=== PATIENT | male | born 1995 | race Caucasian/White ===

== ENCOUNTER → 2020-02-27 10:30 | Outpatient (CLI) | payer OTHER, SELFPAY ==
--- NOTE | ~2020-02-27 | MR_ITS ---
EXAMINATION: MR knee LT wo con DATE: 02/27/2020 11:32 INDICATION: Left knee pain TECHNIQUE: Magnetic resonance imaging (MRI) of the left knee was performed without intravenous contra st. Sequences included coronal PD-weighted FSE, coronal PD-weighted FS FSE, sagittal T2-weighted FSE , sagittal PD-weighted FS FSE and axial PD weighted fat saturated FSE. COMPARISON: None. FINDINGS: Medial compartment: There is subtle increased signal which extends to contact with the superior and inferior articular watson rface along the junction of the central to inner third of the posterior horn of the medial meniscus w hich is evident only on the T2 FS sequences. Although meeting MRI criteria for a longitudinal vertica l meniscal tear, the relatively low degree of increased signal and as well as a absence of a correlat e on the remaining sequences does decrease the level of confidence. No obvious source of artifact how ever is identified to otherwise explain the signal. Articular cartilage is normal. Lateral compartment: Similar to the posterior horn of the medial meniscus there is subtle increased signal extending to co ntact the superior and inferior articular surfaces in the anterior inner third of the posterior horn of the lateral meniscus again which is only evident on the T2 FSE sequence with normal appearance to the meniscus in this region on the sagittal PD-weighted as well as a coronal and axial images again r aising suspicion that this is artifactual rather than a true meniscal tear. Chondral surface irregula rity at the central aspect of the lateral tibial plateau. Patellofemoral compartment: Articular cartilage is normal. A few subtle linear bands of more definitive artifactual increased sig nal projecting over the cartilage at the medial trochlea but which could also be seen extending acros s the deeper marrow of the medial femoral condyle. Ligaments and tendons: Anterior and posterior cruciate ligaments are normal. The medial collateral ligament and fibular deandre ateral ligament complex are normal. The extensor mechanism is normal. The visualized medial and later al hamstring tendons as well as the iliotibial band are normal. Fluid: Physiologic amount of fluid in the joint space. No loose osteochondral bodies identified. Osseous/other: Normal marrow signal. No fracture or pathologic marrow replacing process. IMPRESSION: 1. Shallow chondral surface regularity at the central aspect. Lateral tibial plateau. 2. Subtle increased signal at the posterior horn of both medial and lateral menisci seen only on the T2-weighted FS sequences and favor artifact over meniscal tear. If there is a high degree of suspicio n for meniscal tear could consider MR arthrography for more definitive determination. Reviewed, dictated and finalized at location [facility] IMPRESSION: 1. Shallow chondral surface regularity at the central aspect. Lateral tibial pl ateau. 2. Subtle increased signal at the posterior horn of both medial and lateral men isci seen only on the T2-weighted FS sequences and favor artifact over meniscal tear. If there is a high degree of suspicion for meniscal tear could consider MR arthrography for more definitive determination.
== END ==
PROVIDERS: Visit Provider Nurse Practitioner Family
DX: M25.562 Pain in left knee (principal)
CPT/HCPCS: 73721

== ENCOUNTER 2020-03-23 00:59 | Outpatient (CLI) | payer OTHER, SELFPAY ==
[2020-03-23 20:15] LABS: SARS-CoV-2 RNA PCR Negative
== END 2020-03-23 01:00 | disposition home or self-care (01) ==
LOC: ANHCOVIDDT 00:59
PROVIDERS: PCP Internal Medicine; Visit Provider Orthopaedic Surgery
DX: Z01.818 Encounter for other preprocedural examination (principal); Z20.828 Contact with and (suspected) exposure to other viral communicable diseases
CPT/HCPCS: 87635; C9803; U0003

== ENCOUNTER 2020-03-27 00:37 | Day surgery (SDC) | payer OTHER, SELFPAY ==
[2020-03-18 15:14] VITALS: BMI 38.8
--- NOTE | 2020-03-26 14:12 | WPDANESEPPF ---
Anes - Initial Pre Proc Eval Procedure: Operation Date: 03/27/20 14:30 Proposed Procedures p Left Knee Arthroscopy, Proceed As Indicated - Jame Banerjee MD Date/Time: 03/26/20 14:12 Surgeon: Jame Banerjee MD Pre Op Diagnosis: Left Knee Medial Meniscus Tear Patient Data Age: 24 Gender: M Height: 1.83 m Weight: 130 kg Allergies Allergy/AdvReac Type Severity Reaction Status Date / Time No Known Allergies Allergy Verified 03/18/20 15:15 Home Medications Medication Instructions Recorded Confirmed Type No Home Medications 02/19/20 03/18/20 History Patient hx anesthesia problems: none Family hx anesthesia problems: none PMFSH Past Medical History Medical History Arthritis Heart murmur Irregular heartbeat Left anterior knee pain Medial meniscus tear Weight gain Surgical History Surgical History History of heart surgery 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 Family History Family History Unknown Cancer Social History Social History Smoking status: Never smoker Smokeless tobacco user: chewing tobacco Second hand tobacco smoke exposure: No Smoking end date: 04/12/18 Alcohol intake: current Drinks per week: 12 Living arrangements: with family Gender identity (if verbalized by the patient): Male Spiritual care concerns: No Anes - Eval Final PreProcedure Day of Procedure 03/26/20 14:12 Patient weight: obese Heart: regular rate and rhythm Lungs: clear to auscultation and normal air movement Airway: Mallampati scale class II Neurological: alert and oriented Last oral intake: >/= 8 hours ASA classification: III Emergent: no Anesthetic plan: proceed Anesthesia type and monitoring: general LMA and standard monitoring Informed Consent: The patient's anesthetic plan and its attendant risks and benefits were discussed with the patient/family/POA. Questions were solicited and answers provided to the satisfaction of the patient/family/POA.
[2020-03-27] VITALS (7 sets, daily range): BP systolic 116–142; BP diastolic 67–83; PULSE 57–71; RESP 12–20; TEMP 36.7; O2SAT 94–100
--- NOTE | 2020-03-27 07:27 | WPDHPUPDATE1 ---
History and Physical Update Update Date/Time: 03/27/20 07:27 History and Physical has been reviewed, including an updated exam of the patient. There are NO changes in the patient's condition. Risks, benefits, and alternatives have been discussed and questions answered. Patient agrees to proceed with procedure.
[2020-03-27] MEDS: ACETAMINOPHEN 500 MG TABLET 1000 MG PO (14:05)
[2020-03-27] MEDS: CELECOXIB 200 MG CAPSULE PO (14:06)
[2020-03-27] MEDS: LACTATED RINGERS 1,000 ML 30 ML IV CONT ×2 (14:15→15:57)
--- NOTE | 2020-03-27 14:48 | SUR.PREOP ---
1400-PT STATES HAS USED CRUTCHES IN THE PAST, IS COMFORTABLE WITH USING THEM, AND DOES NOT NEED/WANT CRUTCH TRAINING. VERBAL OVERVIEW OF PROPER POSITIONING AND USAGE GIVEN.
[2020-03-27] MEDS: ceFAZolin 3 GM/D5W 100 ML 100 ML IVPB (15:05)
[2020-03-27] MEDS: BUPIVACAINE HCL 0.5% PF 30 ML VIAL INFILTRATE (15:26)
--- NOTE | 2020-03-27 15:56 | PM.PROC ---
Procedure Note - Detailed Date of procedure: 03/27/20 Pre-op diagnosis: Left Knee Medial Meniscus Tear medial and lateral meniscus tear Post-op diagnosis: other (lateral meniscus tear) Procedure performed: RIGHT KNEE SCOPE WITH PARTIAL LATERAL MENISCECTOMY AND MAJOR SYNOVECTOMY Description of procedure: PATIENT WAS TAKEN TO THE OR. THE LEFT LEG WAS PREPPED AND DRAPED STERILE. TROCARS WERE PLACED IN THE USUAL FASHION. CAMERA WAS INTRODUCED. THERE WAS MINIMAL CHONDROMALACIA TO THE PATELLA FEMORAL JOINT. THERE WAS MINIMAL SYNOVITIS IN ALL COMPARTMENTS. THE MEDIAL COMPARTMENT SHOWED NO CHONDROMALACIA TO THE MED FEMORAL CONDYLE OR TO THE MEDIAL PLATEAU. THERE WAS NO MEDIAL MENISCUS TEAR. THE ACL WAS INTACT. THE LATERAL MENISCUS HAD A SMALL SURFACE TEAR AT THE ROOT AND UNDERWENT RESECTION OF ABOUT 5%. THE LATERAL FEMORAL HAD NO CHONDROMALACIA. A SECOND LOOK WAS PREFORMED AT THE MEDIAL COMPARTMENT TO REASSURE THERE WAS NO TEAR TO THE MEDIAL MENISCUS. THE WOUNDS WERE APPROXIMATED WITH 4.0 NYLON. STERILE DRESSING WAS APPLIED. PATIENT WAS EXTUBATED. Anesthesia: GLMA Surgeon: Jame Banerjee MD Estimated blood loss (mL): 5 Complications: No immediate complications Condition: stable Disposition: PACU
[2020-03-27] MEDS: fentaNYL CITRATE INJ (*CRX) 100 MCG/2 ML VIAL 25 MCG IV PUSH ×4 (16:08→16:44)
[2020-03-27] MEDS: oxyCODONE HCL (*CRX) 5 MG TAB IR PO (17:16)
--- NOTE | 2020-03-27 17:52 | SUR.PHASEII ---
1750 INSTRUCTED PT NOT TO USE RECREATIONAL DRUGS FOR AT LEAST 24 HOURS OR WHILE ON PRESCRIPTION PAIN MEDICATION.
== END 2020-03-27 17:59 | disposition home or self-care (01) ==
PROVIDERS: PCP Internal Medicine; Visit Provider Orthopaedic Surgery
PROC: (CPT 29870; principal; 2020-03-27 14:30)
DX: M23.362 Other meniscus derangements, other lateral meniscus, left knee (principal); M19.90 Unspecified osteoarthritis, unspecified site; R01.1 Cardiac murmur, unspecified; R00.9 Unspecified abnormalities of heart beat; Z72.0 Tobacco use
CPT/HCPCS: 29881; 87635; A9270; C9803; J0690; J1100; J2250; J2405; J2704; J3010; J7120; U0003